=== PATIENT | female | born 1985 | race Caucasian/White ===

== ENCOUNTER 2021-02-09 12:05 | Inpatient (IN) ==
[2021-02-09] MEDS ORDERED: Famotidine 20 MG/2 ML VIAL IVP PRN (12:22)
[2021-02-09] MEDS ORDERED: Lidocaine 1% 20 ML MDV INFILT PRN (12:22)
[2021-02-09] MEDS ORDERED: Metoclopramide 10 MG/2 ML VIAL IVP PRN (12:22)
[2021-02-09] MEDS ORDERED: Naloxone 0.4 MG/ML INJ IVP PRN ×2 (12:22→16:24)
[2021-02-09] MEDS ORDERED: *HR* Nalbuphine 10 MG/ML AMPUL IV PRN (12:22)
[2021-02-09] MEDS ORDERED: Ringers Solution, Lactated 1,000 ML IVC SCH (12:30)
[2021-02-09 13:30] LABS: Basophils % 0.2 %; Eosinophils % 0.3 %; Hematocrit 34.4 % (35.3-44.9); Hemoglobin 10.6 g/dL (11.5-15.4); Immature Granulocytes % 0.8 % (0-4); Lymphocytes # 1.4 K/mcL (0.6-4.6); Lymphocytes % 13.3 %; Mean Corpuscular HGB Conc 30.8 g/dL (31.6-35.5); Mean Corpuscular Hemoglobin 24.8 pg (28.0-33.3); Mean Corpuscular Volume 80.4 fL (83.0-100.0); Mean Platelet Volume 11.7 fL (9.4-12.4); Monocytes # 0.8 K/mcL (0.0-1.3); Monocytes % 7.6 %; Neutrophils # 7.9 K/mcL (1.6-8.9); Platelet Count 178 K/mcL (140-400); Red Blood Count 4.28 M/mcL (3.82-4.97); Red Cell Distribution Width 14.7 % (11.5-14.5); Segmented Neutrophils % 77.8 %; White Blood Count 10.1 K/mcL (4.3-11.1)
[2021-02-09] MEDS ORDERED: Oxytocin 20 units/ LR 1000 mL 20 UNIT/1,000 ML BAG IVC ONE (14:00)
[2021-02-09] MEDS ORDERED: Oxytocin 20 units/ LR 1000 mL 20 UNIT/1,000 ML BAG IVC SCH ×2 (14:00→23:50)
[2021-02-09 14:40] LABS: Amphetamine Screen,Urine Negative ng/mL (Cutoff=1000); Barbiturate Screen,Urine Negative ng/mL (Cutoff=200); Benzodiazepines Screen,Urine Negative ng/mL (Cutoff=200); Cannabinoid Screen,Urine Negative ng/mL (Cutoff = 50); Cocaine Screen,Urine Negative ng/mL (Cutoff= 300); Opiate Screen,Urine Negative ng/mL (Cutoff=300); Phencyclidine Screen,Urine Negative ng/mL (Cutoff=25)
[2021-02-09] MEDS ORDERED: *HR* FentaNYL (PF) 100 MCG/2 ML VIAL EP ONE (16:24)
[2021-02-09] MEDS ORDERED: EPHEDrine 50 MG/ML VIAL IVP PRN (16:24)
[2021-02-09] MEDS ORDERED: Ondansetron 4 MG/2 ML VIAL IVP PRN (16:24)
[2021-02-09] MEDS ORDERED: Ropivacaine/PF 0.2% 20 ML VIAL EP ONE (16:24)
[2021-02-09] MEDS ORDERED: Epidural Premix (fent/bupiv) 110 ML EP SCH (16:30)
[2021-02-09] MEDS ORDERED: Rho Immune Globulin 1,500 UNIT SYRINGE IM PRN (23:50)
[2021-02-09] MEDS ORDERED: Benzocaine/Menthol 56 GM AEROSOL SPRAY TP PRN (23:50)
[2021-02-09] MEDS ORDERED: Acetaminophen 325 MG TABLET PO PRN (23:50)
[2021-02-09] MEDS ORDERED: Lanolin 7 G OINT...G. TP PRN (23:50)
[2021-02-09] MEDS ORDERED: Sennosides 8.6 MG TABLET PO PRN (23:50)
[2021-02-09] MEDS ORDERED: Measles/Mumps/Rubella Vacc 0.5 ML VIAL SQ PRN (23:50)
[2021-02-10] MEDS: Ibuprofen 600 MG TABLET PO PRN ×3 (02:14→21:29)
[2021-02-10 07:40] LABS: Basophils % 0.2 %; Eosinophils # 0.1 K/mcL (0.0-0.6); Eosinophils % 0.5 %; Hematocrit 31.9 % (35.3-44.9); Immature Granulocytes % 0.5 % (0-4); Lymphocytes # 1.3 K/mcL (0.6-4.6); Lymphocytes % 10.1 %; Mean Corpuscular HGB Conc 31.3 g/dL (31.6-35.5); Mean Corpuscular Hemoglobin 25.3 pg (28.0-33.3); Mean Corpuscular Volume 80.6 fL (83.0-100.0); Mean Platelet Volume 11.8 fL (9.4-12.4); Monocytes # 0.9 K/mcL (0.0-1.3); Monocytes % 7.2 %; Neutrophils # 10.5 K/mcL (1.6-8.9); Platelet Count 158 K/mcL (140-400); Red Blood Count 3.96 M/mcL (3.82-4.97); Red Cell Distribution Width 14.7 % (11.5-14.5); Segmented Neutrophils % 81.5 %; White Blood Count 12.9 K/mcL (4.3-11.1)
[2021-02-10 07:57] VITALS: O2SAT 97
[2021-02-10] MEDS ORDERED: NON-FORMULARY MEDICATION 1 EACH EACH (Prenatal Vitamin Tablet 1 TAB) PO SCH (09:00)
[2021-02-10] MEDS ORDERED: Prenatal Vit/FA 1 EACH TABLET PO SCH (09:00)
[2021-02-10 20:09] VITALS: BP 103/57; PULSE 81; TEMP 98.2
== END 2021-02-10 22:50 | disposition home or self-care (01) | DRG 807 ==
LOC: 1NENULAB → 1NENUOBS 02-10 00:11
PROVIDERS: ADMIT Student in an Organized Health Care Education/Training Program; ATTEND Student in an Organized Health Care Education/Training Program